=== PATIENT | female | born 1970 | race African-American/Black ===

== ENCOUNTER 2017-01-26 14:47 | Emergency (ER) | payer SELFPAY ==
--- NOTE | 2017-01-26 15:29 | ER Document Report ---
ED Headache - General Stated Complaint: HEADACHES Time Seen by Provider: 01/26/17 15:19 Mode of Arrival: Ambulatory Information source: Patient Notes: 46 yo smoker, non htn, non dm, non hyperlipedemic obese female woke up with headache frontal CHA 4/5, not feeling well-not herself- 400mg Ibuprofen at 11 am did not help at all. getting ready for work at [employer] in shower felt light headed briefly, and had unusual feeling left temporal throbbing 2/5. Burning midline retrosternal with right chest discomfort yesterday 5:30 pm lasting 5- 6 hours (never had chest pain work up- tums has worked in the past) Thought it was gas. Went to work for mtg at 1 pm today, CHA did not decrease at all, but states it is 2/5. PMH: no dm or HTN, left partial colectomy for polyps, BTL, cholecystectomy, no CAD. FMH: HTN, no CAD. No PCP. cx TRAVEL OUTSIDE OF THE [place] IN LAST 30 DAYS: No - Related Data Allergies/Adverse Reactions: amoxicillin [Amoxicillin] Allergy (Verified 01/26/17 15:30) latex [Latex] Allergy (Verified 01/26/17 15:30) Home Medications: Current Home Medications No Home Medications 01/26/17 [History] Past Medical History - General Information source: Patient - Social History Smoking Status: Current Every Day Smoker Frequency of alcohol use: None Drug Abuse: None Lives with: Family Family History: Reviewed & Not Pertinent Pulmonary Medical History: Reports: Hx Asthma Past Surgical History: Reports: Hx Appendectomy, Hx Cholecystectomy, Hx Tubal Ligation - Immunizations Hx Diphtheria, Pertussis, Tetanus Vaccination: Yes Review of Systems - Review of Systems Constitutional: No symptoms reported EENT: No symptoms reported Cardiovascular: See HPI Respiratory: No symptoms reported Gastrointestinal: No symptoms reported Genitourinary: No symptoms reported Female Genitourinary: No symptoms reported Musculoskeletal: No symptoms reported Skin: No symptoms reported Hematologic/Lymphatic: No symptoms reported Neurological/Psychological: See HPI Physical Exam - Vital signs Vitals: Temp Pulse Resp BP Pulse Ox 97.8 F 87 18 149/76 H 100 01/26/17 15:05 01/26/17 15:05 01/26/17 15:05 01/26/17 15:05 01/26/17 15:05 Interpretation: Normal - General General appearance: Appears well, Alert - HEENT Head: Normocephalic, Atraumatic Eyes: Normal Conjunctiva: Normal Pupils: PERRL Mucous membranes: Normal Pharynx: Normal Neck: Supple. No: Lymphadenopathy - Respiratory Respiratory status: No respiratory distress Chest status: Nontender Breath sounds: Normal Chest palpation: Normal - Cardiovascular Rhythm: Regular Heart sounds: Normal auscultation Murmur: No - Abdominal Inspection: Normal Distension: No distension Bowel sounds: Normal Tenderness: Nontender Organomegaly: No organomegaly - Back Back: Normal, Nontender. No: CVA tenderness - Extremities General upper extremity: Normal inspection, Nontender, Normal color, Normal ROM , Normal temperature General lower extremity: Normal inspection, Nontender, Normal color, Normal ROM , Normal temperature, Normal weight bearing. No: Marsha's sign - Neurological Neuro grossly intact: Yes Cognition: Normal Orientation: AAOx4 [place] Coma Scale Eye Opening: Spontaneous Claudia Coma Scale Verbal: Oriented [place] Coma Scale Motor: Obeys Commands [place] Coma Scale Total: 15 Speech: Normal Motor strength normal: LUE, RUE, LLE, RLE Sensory: Normal - Psychological Associated symptoms: Normal affect, Normal mood - Skin Skin Temperature: Warm Skin Moisture: Dry Skin Color: Normal Course - Re-evaluation Re-evalutation: 01/26/17 17:41 CT scan, chest x-ray are negative, lab work is negative, troponin is negative, EKG normal sinus rhythm with a rate of 83, no ectopy or acute changes. - Vital Signs Vital signs: Temp Pulse Resp BP Pulse Ox 98.3 F 92 18 164/76 H 99 01/26/17 17:59 01/26/17 17:59 01/26/17 17:59 01/26/17 17:59 01/26/17 17:59 - Laboratory Result Diagrams: 01/26/17 15:30 01/26/17 15:30 Laboratory results interpreted by me: 01/26/17 15:30 RDW 14.2 H Discharge - Discharge Clinical Impression: episode of chest pain last night, episode of lightheadedness Headache Qualifiers: Headache type: unspecified Headache chronicity pattern: unspecified pattern Intractability: not intractable Qualified Code(s): R51 - Headache Condition: Good Disposition: HOME, SELF-CARE Instructions: Acetaminophen, Chest Pain of Unclear Cause ([facility]), Dizziness ([facility]) , Family Physicians / Practices, Headache ([facility]), Use of [id number] Ibuprofen ([facility]) Additional Instructions: see neurologist about the headache return to the ER if worsening of the headache or chest pain recurrence Please complete the patient satisfaction survey if you get one, and return it.. If you do not receive a survey, then you can go to the [facility] website, [email or web address] and place your comments about your very good care. Thank you very much. It was a pleasure being your medical provider today. Forms: Return to Work Referrals: KATHYA MOREIRA MD [ACTIVE STAFF] - Follow up in 3-5 days
--- NOTE | 2017-01-26 16:02 | RADIOLOGY REPORT (SQ) ---
EXAM DESCRIPTION: CT HEAD WITHOUT COMPLETED DATE/TIME: 01/26/2017 3:56 pm REASON FOR STUDY: headache and dizzy COMPARISON: None. TECHNIQUE: Axial images acquired through the brain without intravenous contrast. Images reviewed wi th bone, brain and subdural windows. Images stored on PACS. All CT scanners at this facility use dose modulation, iterative reconstruction, and/or weight based d osing when appropriate to reduce radiation dose to as low as reasonably achievable (ALARA). [facility]: Dose Right [facility]: CareDose [facility]: Dose Right [facility]: Teradose 4D [facility]: [employer] RADIATION DOSE: mGy. LIMITATIONS: None. FINDINGS: VENTRICLES: Normal size and contour. CEREBRUM: No masses. No hemorrhage. No midline shift. No evidence for acute infarction. Normal gra y/white matter differentiation. No areas of low density in the white matter. CEREBELLUM: No masses. No hemorrhage. No alteration of density. No evidence for acute infarction. EXTRAAXIAL SPACES: No fluid collections. No masses. ORBITS AND GLOBE: No intra- or extraconal masses. Normal contour of globe without masses. CALVARIUM: No fracture. PARANASAL SINUSES: No fluid or mucosal thickening. SOFT TISSUES: No mass or hematoma. OTHER: No other significant finding. IMPRESSION: NORMAL BRAIN CT WITHOUT CONTRAST. EVIDENCE OF ACUTE STROKE: NO. COMMENT: Quality ID # [id number]: Final reports with documentation of one or more dose reduction techniques (e.g., Automated exposure control, adjustment of the mA and/or kV according to patient size, use of iterative reconstruction technique) TECHNICAL DOCUMENTATION: JOB ID: [id number] [employer]- All Rights Reserved
[2017-01-26 16:07] LABS: ABSOLUTE EOSINOPHILS # (AUTO) 0.1 10^3/uL (0.0-0.6); ABSOLUTE LYMPHOCYTES (AUTO) 2.9 10^3/uL (0.5-4.7); ABSOLUTE MONOCYTES (AUTO) 0.5 10^3/uL (0.1-1.4); ABSOLUTE NEUT (AUTO) 3.5 10^3/uL (1.7-8.2); BASOPHILS % (AUTO) 0.4 % (0-2); EOSINOPHILS % (AUTO) 1.6 % (0-6); HEMATOCRIT 36.4 % (36.0-47.0); HEMOGLOBIN 12.3 g/dL (12.0-15.5); HGB HCT DIFFERENCE 0.5; LYMPHOCYTES % (AUTO) 41.4 % (13-45); MEAN CORPUSCULAR HEMOGLOBIN 27.2 pg (27.0-33.4); MEAN CORPUSCULAR HGB CONC 33.7 g/dL (32.0-36.0); MEAN CORPUSCULAR VOLUME 81 fl (80-97); MONOCYTES % (AUTO) 6.9 % (3-13); RED BLOOD COUNT 4.51 10^6/uL (3.72-5.28); RED CELL DISTRIBUTION WIDTH 14.2 % (11.5-14.0); SEGMENTED NEUTROPHILS % (AUTO) 49.7 % (42-78); WHITE BLOOD COUNT 7.1 10^3/uL (4.0-10.5)
--- NOTE | 2017-01-26 16:10 | RADIOLOGY REPORT (SQ) ---
EXAM DESCRIPTION: CHEST PA/LAT COMPLETED DATE/TIME: 01/26/2017 4:01 pm REASON FOR STUDY: chest pain yesterday COMPARISON: None. EXAM PARAMETERS: NUMBER OF VIEWS: two views TECHNIQUE: Digital Frontal and Lateral radiographic views of the chest acquired. RADIATION DOSE: NA LIMITATIONS: none FINDINGS: LUNGS AND PLEURA: No opacities, masses or pneumothorax. No pleural effusion. MEDIASTINUM AND HILAR STRUCTURES: No masses or contour abnormalities. HEART AND VASCULAR STRUCTURES: Heart normal size. No evidence for failure. BONES: No acute findings. HARDWARE: Clips in the upper abdomen. OTHER: No other significant finding. IMPRESSION: NO SIGNIFICANT RADIOGRAPHIC FINDING IN THE CHEST. TECHNICAL DOCUMENTATION: JOB ID: [id number] [employer]- All Rights Reserved
[2017-01-26 16:31] LABS: ALANINE AMINOTRANSFERASE 29 U/L (9-52); ALBUMIN 4.1 g/dL (3.5-5.0); ALKALINE PHOSPHATASE 95 U/L (38-126); ANION GAP 10 (5-19); ASPARTATE AMINO TRANSFERASE 20 U/L (14-36); BILIRUBIN,DIRECT 0.3 mg/dL (0.0-0.4); BILIRUBIN,TOTAL 0.4 mg/dL (0.2-1.3); BLOOD UREA NITROGEN 13 mg/dL (7-20); CALCIUM 9.8 mg/dL (8.4-10.2); CARBON DIOXIDE 30 mmol/L (22-30); CHLORIDE 104 mmol/L (98-107); CREATINE KINASE 64 U/L (30-135); CREATININE RESULT 0.68 mg/dL (0.52-1.25); GLUCOSE 88 mg/dL (75-110); POTASSIUM 4.1 mmol/L (3.6-5.0); TOTAL PROTEIN 7.9 g/dL (6.3-8.2)
[2017-01-26 16:43] LABS: CREATINE KINASE MB 0.27 ng/mL (<4.55)
[2017-01-26 16:45] LABS: TROPONIN I < 0.012 ng/mL
[2017-01-26 18:00] VITALS: BP 164/76
--- NOTE | 2017-01-27 13:38 | EKG REPORT ---
SEVERITY:- NORMAL ECG - SINUS RHYTHM : Confirmed by: Jl Nagy 27-Jan-2017 13:37:26
== END 2017-01-26 18:07 | disposition home or self-care (01) ==
LOC: ER 14:47
DX: R51 Headache (principal); R07.9 Chest pain, unspecified; R42 Dizziness and giddiness; E66.9 Obesity, unspecified; J45.909 Unspecified asthma, uncomplicated; F17.200 Nicotine dependence, unspecified, uncomplicated; Z68.43 Body mass index [BMI] 50.0-59.9, adult; Z88.0 Allergy status to penicillin; Z91.040 Latex allergy status
CPT/HCPCS: 36415; 70450; 71020; 80053; 82550; 82553; 84484; 85025; 93005; 93010; 99285

== ENCOUNTER 2017-08-18 08:08 | Emergency (ER) | payer SELFPAY ==
--- NOTE | 2017-08-18 08:48 | ER Document Report ---
ED GI/ - General Chief Complaint: Abdominal Pain Stated Complaint: ABDOMINAL PAIN,BLOOD IN STOOL Time Seen by Provider: 08/18/17 08:30 Mode of Arrival: Ambulatory Information source: Patient Notes: Patient presents complaining of rectal bleeding with bowel movements on Sunday, Sunday and Sunday of this week. Patient denies any rectal bleeding today. Patient states that it was convenient with her scheduled to come in today for evaluation. Patient states she has a history of polyps surgery 8 years ago. Patient denies any fever, nausea or vomiting. Patient does report some urinary frequency. Patient denies any vaginal discharge. Patient additionally complains of occasional episodes of dizziness. Patient denies any sinus congestion but does report pruritus to her ears and popping sensation in her ears. TRAVEL OUTSIDE OF THE [place] IN LAST 30 DAYS: No - HPI Patient complains to provider of: Abdominal pain, Other - Rectal bleeding with bowel movement. No: Vomiting Onset: Other - 5 days ago Timing/Duration: Gone Quality of pain: Achy Pain Level: 2 Location: Pelvis Vaginal bleeding (Compared to normal period): None Associated symptoms: Blood in stool, Dizzy. denies: Diarrhea, Dysuria, Fever, Nausea, Urinary hesitancy, Urinary frequency, Urinary retention, Urinary urgency , Vomiting Exacerbated by: Denies Relieved by: Denies Similar symptoms previously: Yes Recently seen / treated by doctor: No - Related Data Allergies/Adverse Reactions: amoxicillin [Amoxicillin] Allergy (Verified 08/18/17 08:08) latex [Latex] Allergy (Verified 08/18/17 08:08) Past Medical History - General Information source: Patient - Social History Smoking Status: Current Every Day Smoker Smoking Education Provided: Yes Frequency of alcohol use: None Drug Abuse: None Occupation: Food[employer] Family History: Reviewed & Not Pertinent - Past Medical History Cardiac Medical History: Denies: Hx Coronary Artery Disease, Hx Heart Attack, Hx Hypertension Pulmonary Medical History: Reports: Hx Asthma Denies: Hx Bronchitis, Hx COPD, Hx Pneumonia EENT Medical History: Reports: Other - Allergies Neurological Medical History: Denies: Hx Cerebrovascular Accident, Hx Seizures Musculoskeltal Medical History: Denies Hx Arthritis Past Surgical History: Reports: Hx Abdominal Surgery - part of colon removed, Hx Appendectomy, Hx Cholecystectomy, Hx Tubal Ligation - Immunizations Hx Diphtheria, Pertussis, Tetanus Vaccination: Yes Review of Systems - Review of Systems Constitutional: No symptoms reported. denies: Fever, Recent illness EENT: Other - Ear pruritus. denies: Nose pain, Throat pain Cardiovascular: Dizziness. denies: Chest pain Respiratory: No symptoms reported. denies: Cough, Short of breath Gastrointestinal: Abdominal pain, Rectal bleeding. denies: Diarrhea, Nausea, Vomiting Genitourinary: No symptoms reported. denies: Dysuria Female Genitourinary: No symptoms reported. denies: Vaginal discharge, Vaginal bleeding Musculoskeletal: No symptoms reported. denies: Back pain Skin: No symptoms reported Hematologic/Lymphatic: No symptoms reported Neurological/Psychological: No symptoms reported Physical Exam - Vital signs Vitals: Temp Pulse Resp BP Pulse Ox 98.5 F 88 16 126/60 H 98 08/18/17 08:20 08/18/17 08:20 08/18/17 08:20 08/18/17 08:20 08/18/17 08:20 - General General appearance: Appears well, Alert In distress: None - HEENT Head: Normocephalic Eyes: Normal Ears: Normal External canal: Normal Tympanic membrane: Serous effusion Nasal: Normal Mouth/Lips: Normal Pharynx: Normal Neck: Normal, Supple. No: Lymphadenopathy - Respiratory Respiratory status: No respiratory distress Chest status: Nontender Breath sounds: Normal. No: Rales, Rhonchi, Stridor, Wheezing Chest palpation: Normal - Cardiovascular Rhythm: Regular Heart sounds: S1 appreciated, S2 appreciated Murmur: No - Abdominal Inspection: Morbidly Obese, Other - linear scar Distension: No distension Bowel sounds: Normal Tenderness: Tender - suprapubic - Back Back: Normal, Nontender. No: CVA tenderness - Extremities General upper extremity: Normal inspection, Normal ROM General lower extremity: Normal inspection, Normal ROM - Neurological Neuro grossly intact: Yes Cognition: Normal [place] Coma Scale Eye Opening: Spontaneous Claudia Coma Scale Verbal: Oriented Claudia Coma Scale Motor: Obeys Commands Claudia Coma Scale Total: 15 - Psychological Associated symptoms: Normal affect, Normal mood - Skin Skin Temperature: Warm Skin Moisture: Dry Skin Color: Normal Course - Re-evaluation Re-evalutation: 08/18/17 12:21 Patient's Hemoccult test negative. No concern for anemia. Patient hemodynamically stable. Patient states she has had chronic abdominal pain since having her initial surgery. Patient does have large stool load noted on abdominal x-ray, no concern for obstruction. Will give patient outpatient information for follow-up with GI doctor for further evaluation of her episode of rectal bleeding. Consulted with Dr. Ross who is in agreement with this discharge plan of care. 08/18/17 18:15 - Vital Signs Vital signs: Temp Pulse Resp BP Pulse Ox 98.7 F 87 18 134/73 H 100 08/18/17 12:35 08/18/17 12:35 08/18/17 12:35 08/18/17 12:35 08/18/17 12:35 - Laboratory Result Diagrams: 08/18/17 09:20 08/18/17 10:30 Laboratory results interpreted by me: 08/18/17 08/18/17 09:20 10:30 APTT 38.9 H Creatinine 0.49 L Labs- Entire Visit 08/18/17 08/18/17 08/18/17 08:50 09:20 09:20 WBC 7.3 RBC 4.61 Hgb 12.6 Hct 38.0 MCV 82 MCH 27.4 MCHC 33.2 RDW 13.7 Plt Count 258 Seg Neutrophils % 54.7 Lymphocytes % 37.5 Monocytes % 6.1 Eosinophils % 0.8 Basophils % 0.9 Absolute Neutrophils 4.0 Absolute Lymphocytes 2.7 Absolute Monocytes 0.4 Absolute Eosinophils 0.1 Absolute Basophils 0.1 PT 13.5 INR 0.98 APTT 38.9 H Sodium Potassium Chloride Carbon Dioxide Anion Gap BUN Creatinine Est GFR ( Amer) Est GFR (Non-Af Amer) Glucose Calcium Total Bilirubin Direct Bilirubin Neonat Total Bilirubin Neonat Direct Bilirubin Neonat Indirect Bili AST ALT Alkaline Phosphatase Total Protein Albumin Lipase Serum HCG, Qual Urine Color Urine Appearance Urine pH Ur Specific [place] Urine Protein Urine Glucose (UA) Urine Ketones Urine Blood Urine Nitrite Urine Bilirubin Urine Urobilinogen Ur Leukocyte Esterase Urine WBC (Auto) Urine RBC (Auto) Urine Bacteria (Auto) Squamous Epi Cells Auto Urine Mucus (Auto) Urine Ascorbic Acid Urine HCG, Qual Stool Occult Blood NEGATIVE 08/18/17 08/18/17 08/18/17 09:20 09:20 09:30 WBC RBC Hgb Hct MCV MCH MCHC RDW Plt Count Seg Neutrophils % Lymphocytes % Monocytes % Eosinophils % Basophils % Absolute Neutrophils Absolute Lymphocytes Absolute Monocytes Absolute Eosinophils Absolute Basophils PT INR APTT Sodium Cancelled Potassium Cancelled Chloride Cancelled Carbon Dioxide Cancelled Anion Gap Cancelled BUN Cancelled Creatinine Cancelled Est GFR ( Amer) Cancelled Est GFR (Non-Af Amer) Cancelled Glucose Cancelled Calcium Cancelled Total Bilirubin Cancelled Direct Bilirubin Cancelled Neonat Total Bilirubin Cancelled Neonat Direct Bilirubin Cancelled Neonat Indirect Bili Cancelled AST Cancelled ALT Cancelled Alkaline Phosphatase Cancelled Total Protein Cancelled Albumin Cancelled Lipase Cancelled Serum HCG, Qual Cancelled Urine Color YELLOW Urine Appearance CLEAR Urine pH 7.0 Ur Specific [place] 1.010 Urine Protein NEGATIVE Urine Glucose (UA) NEGATIVE Urine Ketones NEGATIVE Urine Blood NEGATIVE Urine Nitrite NEGATIVE Urine Bilirubin NEGATIVE Urine Urobilinogen NEGATIVE Ur Leukocyte Esterase NEGATIVE Urine WBC (Auto) 2 Urine RBC (Auto) 0 Urine Bacteria (Auto) TRACE Squamous Epi Cells Auto 3 Urine Mucus (Auto) RARE Urine Ascorbic Acid NEGATIVE Urine HCG, Qual Stool Occult Blood 08/18/17 08/18/17 09:30 10:30 WBC RBC Hgb Hct MCV MCH MCHC RDW Plt Count Seg Neutrophils % Lymphocytes % Monocytes % Eosinophils % Basophils % Absolute Neutrophils Absolute Lymphocytes Absolute Monocytes Absolute Eosinophils Absolute Basophils PT INR APTT Sodium 143.6 Potassium 4.5 Chloride 107 Carbon Dioxide 25 Anion Gap 12 BUN 9 Creatinine 0.49 L Est GFR ( Amer) > 60 Est GFR (Non-Af Amer) > 60 Glucose 91 Calcium 9.4 Total Bilirubin 0.5 Direct Bilirubin 0.3 Neonat Total Bilirubin Not Reportable Neonat Direct Bilirubin Not Reportable Neonat Indirect Bili Not Reportable AST 17 ALT 24 Alkaline Phosphatase 88 Total Protein 7.4 Albumin 3.8 Lipase 55.0 Serum HCG, Qual Urine Color Urine Appearance Urine pH Ur Specific [place] Urine Protein Urine Glucose (UA) Urine Ketones Urine Blood Urine Nitrite Urine Bilirubin Urine Urobilinogen Ur Leukocyte Esterase Urine WBC (Auto) Urine RBC (Auto) Urine Bacteria (Auto) Squamous Epi Cells Auto Urine Mucus (Auto) Urine Ascorbic Acid Urine HCG, Qual NEGATIVE Stool Occult Blood - Diagnostic Test Radiology reviewed: Image reviewed, Reports reviewed Discharge - Discharge Clinical Impression: episode of rectal bleeding Condition: Stable Disposition: HOME, SELF-CARE Instructions: Abdominal Pain ([facility]), Rectal Bleeding, Unclear Cause ([facility]) Additional Instructions: Return immediately for any new or worsening symptoms Followup with your primary care provider, call tomorrow to make a followup appointment Follow-up with a topstitcher lockstitch, they can get you set up for a colonoscopy for further evaluation Prescriptions: Cetirizine HCl [Zyrtec 10 mg Tablet] 1 tab PO DAILY PRN #30 tablet PRN Reason: Polyethylene Glycol 3350 [Miralax] 17 gm PO DAILY #119 powder Forms: Smoking Cessation Education, Return to Work Referrals: [facility] [Provider Group] - Follow up as needed [facility] [Provider Group] - Follow up as needed MEREDITH DAVIS MD [NO LOCAL MD] - Follow up as needed MARIA LUISA ELLISON MD [ACTIVE STAFF] - Follow up as needed JESUSITA BLAIR MD [ACTIVE STAFF] - Follow up as needed
[2017-08-18 09:32] LABS: ABSOLUTE BASOPHILS # (AUTO) 0.1 10^3/uL (0.0-0.2); ABSOLUTE EOSINOPHILS # (AUTO) 0.1 10^3/uL (0.0-0.6); ABSOLUTE LYMPHOCYTES (AUTO) 2.7 10^3/uL (0.5-4.7); ABSOLUTE MONOCYTES (AUTO) 0.4 10^3/uL (0.1-1.4); BASOPHILS % (AUTO) 0.9 % (0-2); EOSINOPHILS % (AUTO) 0.8 % (0-6); HEMOGLOBIN 12.6 g/dL (12.0-15.5); LYMPHOCYTES % (AUTO) 37.5 % (13-45); MEAN CORPUSCULAR HEMOGLOBIN 27.4 pg (27.0-33.4); MEAN CORPUSCULAR HGB CONC 33.2 g/dL (32.0-36.0); MEAN CORPUSCULAR VOLUME 82 fl (80-97); MONOCYTES % (AUTO) 6.1 % (3-13); PLATELET COUNT 258 10^3/uL (150-450); RED BLOOD COUNT 4.61 10^6/uL (3.72-5.28); RED CELL DISTRIBUTION WIDTH 13.7 % (11.5-14.0); SEGMENTED NEUTROPHILS % (AUTO) 54.7 % (42-78); TOTAL CELLS COUNTED % (AUTO) 100 %; WHITE BLOOD COUNT 7.3 10^3/uL (4.0-10.5)
[2017-08-18 09:49] LABS: INTERNATIONAL RATION (INR) 0.98; PARTIAL THROMBOPLASTIN TIME 38.9 SEC (23.5-35.8); PROTHROMBIN TIME 13.5 SEC (11.4-15.4)
[2017-08-18 10:04] LABS: APPEARANCE,URINE CLEAR; BILIRUBIN,URINE NEGATIVE (NEGATIVE); COLOR,URINE YELLOW; GLUCOSE, URINE NEGATIVE (NEGATIVE); KETONES,URINE NEGATIVE (NEGATIVE); LEUKOCYTE ESTERASE,URINE NEGATIVE (NEGATIVE); NITRITE,URINE NEGATIVE (NEGATIVE); PROTEIN,URINE NEGATIVE (NEGATIVE); UROBILINOGEN,URINE NEGATIVE mg/dL (<2.0)
[2017-08-18 11:09] LABS: ALANINE AMINOTRANSFERASE 24 U/L (9-52); ALBUMIN 3.8 g/dL (3.5-5.0); ALKALINE PHOSPHATASE 88 U/L (38-126); ANION GAP 12 (5-19); ASPARTATE AMINO TRANSFERASE 17 U/L (14-36); BILIRUBIN,DIRECT 0.3 mg/dL (0.0-0.4); BILIRUBIN,TOTAL 0.5 mg/dL (0.2-1.3); BLOOD UREA NITROGEN 9 mg/dL (7-20); CALCIUM 9.4 mg/dL (8.4-10.2); CARBON DIOXIDE 25 mmol/L (22-30); CHLORIDE 107 mmol/L (98-107); GLUCOSE 91 mg/dL (75-110); POTASSIUM 4.5 mmol/L (3.6-5.0); SODIUM 143.6 mmol/L (137-145); TOTAL PROTEIN 7.4 g/dL (6.3-8.2)
--- NOTE | 2017-08-18 11:57 | RADIOLOGY REPORT (SQ) ---
EXAM DESCRIPTION: ACUTE ABDOMEN SERIES COMPLETED DATE/TIME: 08/18/2017 11:48 am REASON FOR STUDY: abd pain COMPARISON: None. NUMBER OF VIEWS: Three views. TECHNIQUE: Frontal chest, supine abdomen and upright/decubitus abdomen radiographic images acquired. LIMITATIONS: None. FINDINGS: CHEST: Lungs clear of infiltrates. FREE AIR: None. No abnormal gas collections. BOWEL GAS PATTERN: Nonobstructive pattern. No dilated loops or air fluid levels. CALCIFICATIONS: No suspicious calcifications. HARDWARE: Surgical clips. SOFT TISSUES: No gross mass or suggestion of organomegaly. BONES: No acute fracture. No worrisome bone lesions. OTHER: No other significant finding. IMPRESSION: NO RADIOGRAPHIC EVIDENCE FOR ACUTE ABDOMINAL DISEASE. TECHNICAL DOCUMENTATION: JOB ID: [id number] [employer]- All Rights Reserved Reading location - IP/workstation name: [email or web address]
[2017-08-18 12:38] VITALS: BP 134/73
--- NOTE | 2017-08-18 20:45 | EKG REPORT ---
SEVERITY:- NORMAL ECG - SINUS RHYTHM : Confirmed by: Jl Nagy 18-Aug-2017 17:44:23
== END 2017-08-18 12:41 | disposition home or self-care (01) ==
LOC: ER 08:08
DX: K62.5 Hemorrhage of anus and rectum (principal); R35.0 Frequency of micturition; R42 Dizziness and giddiness; L29.9 Pruritus, unspecified; R10.2 Pelvic and perineal pain; F17.200 Nicotine dependence, unspecified, uncomplicated; J45.909 Unspecified asthma, uncomplicated; Z90.49 Acquired absence of other specified parts of digestive tract; Z98.51 Tubal ligation status; Z88.0 Allergy status to penicillin
CPT/HCPCS: 36415; 74022; 80053; 81001; 81025; 82272; 83690; 85025; 85610; 85730; 93005; 93010; 99284

== ENCOUNTER 2018-10-05 09:25 | Emergency (ER) | payer SELFPAY ==
[2018-10-05] MEDS ORDERED: ONDANSETRON 4 MG TAB.RAPDIS PO ONE (09:35)
--- NOTE | 2018-10-05 09:39 | ER Document Report ---
ED Medical Screen (RME) - General Chief Complaint: Dizziness Stated Complaint: LIGHTHEADED Time Seen by Provider: 10/05/18 09:29 Mode of Arrival: Ambulatory Information source: Patient Notes: Patient presents emergency department with feeling lightheaded blurred vision reports she just did not feel well. Reports for the past few days she has not been feeling well. Complains of right upper quad abdominal pain. Reports history of constipation problems. Last couple days she has been taking mag citrate and MiraLAX. She reports she has a bowel movement yesterday but laid in the bed all day because she did not feel good. Complains of nausea denies chest pain. Denies dysuria denies vaginal discharge. Denies vomiting and diarrhea fever. Reports history of colon resection due to polyps and family history of colon cancer. Denies history of kidney stones. Patient looks comfortable, nontoxic looking, RUQ ttp. I have greeted and performed a rapid initial assessment of this patient. A comprehensive ED assessment and evaluation of the patient, analysis of test results and completion of the medical decision making process will be conducted by additional ED providers. Dictation of this chart was performed using voice recognition software; therefore, there may be some unintended grammatical errors. TRAVEL OUTSIDE OF THE [place] IN LAST 30 DAYS: No - HPI Onset: Other - Related Data Allergies/Adverse Reactions: amoxicillin [Amoxicillin] Allergy (Verified 10/05/18 09:26) latex [Latex] Allergy (Verified 10/05/18 09:26) Past Medical History - Social History Chew tobacco use (# tins/day): No Frequency of alcohol use: None Drug Abuse: None - Past Medical History Cardiac Medical History: Denies: Hx Coronary Artery Disease, Hx Heart Attack, Hx Hypertension Pulmonary Medical History: Reports: Hx Asthma Denies: Hx Bronchitis, Hx COPD, Hx Pneumonia Neurological Medical History: Denies: Hx Cerebrovascular Accident, Hx Seizures Renal/ Medical History: Denies: Hx Peritoneal Dialysis Musculoskeltal Medical History: Denies Hx Arthritis Past Surgical History: Reports: Hx Abdominal Surgery - part of colon removed, Hx Appendectomy, Hx Breast Surgery - breast reduction, Hx Cholecystectomy, Hx Tubal Ligation - Immunizations Hx Diphtheria, Pertussis, Tetanus Vaccination: Yes Physical Exam - Vital signs Vitals: Temp Pulse Resp BP Pulse Ox 98.6 F 84 16 153/71 H 98 10/05/18 09:29 10/05/18 09:29 10/05/18 09:29 10/05/18 09:29 10/05/18 09:29 Course - Vital Signs Vital signs: Temp Pulse Resp BP Pulse Ox 98.6 F 84 16 153/71 H 98 10/05/18 09:29 10/05/18 09:29 10/05/18 09:29 10/05/18 09:29 10/05/18 09:29 - Laboratory Result Diagrams: 10/05/18 09:44 10/05/18 09:44
[2018-10-05 09:58] LABS: ABSOLUTE BASOPHILS # (AUTO) 0.1 10^3/uL (0.0-0.2); ABSOLUTE EOSINOPHILS # (AUTO) 0.1 10^3/uL (0.0-0.6); ABSOLUTE LYMPHOCYTES (AUTO) 2.6 10^3/uL (0.5-4.7); ABSOLUTE MONOCYTES (AUTO) 0.5 10^3/uL (0.1-1.4); BASOPHILS % (AUTO) 1.1 % (0-2); EOSINOPHILS % (AUTO) 1.6 % (0-6); HEMATOCRIT 39.8 % (36.0-47.0); HEMOGLOBIN 13.6 g/dL (12.0-15.5); LYMPHOCYTES % (AUTO) 35.7 % (13-45); MEAN CORPUSCULAR HEMOGLOBIN 28.2 pg (27.0-33.4); MEAN CORPUSCULAR HGB CONC 34.2 g/dL (32.0-36.0); MEAN CORPUSCULAR VOLUME 83 fl (80-97); MONOCYTES % (AUTO) 7.1 % (3-13); PLATELET COUNT 261 10^3/uL (150-450); RED BLOOD COUNT 4.82 10^6/uL (3.72-5.28); RED CELL DISTRIBUTION WIDTH 13.9 % (11.5-14.0); SEGMENTED NEUTROPHILS % (AUTO) 54.5 % (42-78); TOTAL CELLS COUNTED % (AUTO) 100 %; WHITE BLOOD COUNT 7.4 10^3/uL (4.0-10.5)
[2018-10-05 10:09] LABS: APPEARANCE,URINE CLEAR; BILIRUBIN,URINE NEGATIVE (NEGATIVE); COLOR,URINE STRAW; GLUCOSE, URINE NEGATIVE (NEGATIVE); KETONES,URINE NEGATIVE (NEGATIVE)
[2018-10-05 10:10] LABS: LEUKOCYTE ESTERASE,URINE NEGATIVE (NEGATIVE); NITRITE,URINE NEGATIVE (NEGATIVE); PROTEIN,URINE NEGATIVE (NEGATIVE); UROBILINOGEN,URINE NEGATIVE mg/dL (<2.0)
[2018-10-05 10:16] LABS: ALANINE AMINOTRANSFERASE 19 U/L (9-52); ALBUMIN 4.1 g/dL (3.5-5.0); ALKALINE PHOSPHATASE 90 U/L (38-126); ANION GAP 6 (5-19); ASPARTATE AMINO TRANSFERASE 20 U/L (14-36); BILIRUBIN,DIRECT 0.2 mg/dL (0.0-0.4); BILIRUBIN,TOTAL 0.3 mg/dL (0.2-1.3); BLOOD UREA NITROGEN 12 mg/dL (7-20); CALCIUM 9.4 mg/dL (8.4-10.2); CARBON DIOXIDE 28 mmol/L (22-30); CHLORIDE 106 mmol/L (98-107); GLUCOSE 104 mg/dL (75-110); LIPASE 75.4 U/L (23-300); POTASSIUM 4.3 mmol/L (3.6-5.0); SODIUM 139.9 mmol/L (137-145); TOTAL PROTEIN 8.1 g/dL (6.3-8.2)
--- NOTE | 2018-10-05 11:04 | RADIOLOGY REPORT (SQ) ---
EXAM DESCRIPTION: U/S ABDOMEN LIMITED W/O DOP COMPLETED DATE/TIME: 10/05/2018 10:26 am REASON FOR STUDY: RUQ pain, ?unsure if she had vernon COMPARISON: Abdominal films 08/18/2017 CT abdomen pelvis 10/05/2018 TECHNIQUE: Dynamic and static grayscale images acquired of the abdomen and recorded on PACS. Additio nal selected color Doppler and spectral images recorded. LIMITATIONS: Large patient, body habitus, midline bowel gas FINDINGS: PANCREAS: Midline pancreas unremarkable LIVER: No masses. Echotexture normal. LIVER VASCULATURE: Normal directional flow of the main portal vein and hepatic veins. GALLBLADDER: Surgically absent ULTRASOUND-DETECTED REID'S SIGN: Not applicable INTRAHEPATIC DUCTS AND COMMON DUCT: CBD and intrahepatic ducts normal caliber. No filling defects. INFERIOR VENA CAVA: Normal flow. AORTA: No aneurysm. RIGHT KIDNEY: Normal size. Normal echogenicity. No solid or suspicious masses. No hydronephrosis. No calcifications. PERITONEAL AND RIGHT PLEURAL SPACE: No ascites or effusions. OTHER: No other significant findings. IMPRESSION: Post cholecystectomy. TECHNICAL DOCUMENTATION: JOB ID: [id number]- All Rights Reserved Reading location - IP/workstation name: [email or web address]
--- NOTE | 2018-10-05 11:20 | RADIOLOGY REPORT (SQ) ---
EXAM DESCRIPTION: CT ABD/PELVIS NO ORAL OR IV COMPLETED DATE/TIME: 10/05/2018 11:03 am REASON FOR STUDY: RUQ pain, s/p hemicolectomy COMPARISON: Right upper quadrant ultrasound 10/05/2018 TECHNIQUE: CT scan of the abdomen and pelvis performed without intravenous or oral contrast. Images reviewed with lung, soft tissue, and bone windows. Reconstructed coronal and sagittal MPR images revi ewed. All images stored on PACS. All CT scanners at this facility use dose modulation, iterative reconstruction, and/or weight based d osing when appropriate to reduce radiation dose to as low as reasonably achievable (ALARA). [facility]: Dose Right [facility]: CareDose [facility]: Dose Right [facility]: Teradose 4D [facility]: Smart Bark[employer] RADIATION DOSE: CT Rad equipment meets quality standard of care and radiation dose reduction techniq ues were employed. CTDIvol: 18.7 mGy. DLP: 954 mGy-cm.mGy. LIMITATIONS: None. FINDINGS: LOWER CHEST: No significant findings. No nodules or infiltrates. NON-CONTRASTED LIVER, SPLEEN, ADRENALS: Evaluation limited by lack of IV contrast. No identified sign ificant masses. PANCREAS: No masses. No peripancreatic inflammatory changes. GALLBLADDER: Surgically absent RIGHT KIDNEY AND URETER: No suspicious masses. Assessment limited by lack of IV contrast. No signif icant calcifications. No hydronephrosis or hydroureter. LEFT KIDNEY AND URETER: No suspicious masses. Assessment limited by lack of IV contrast. No signifi cant calcifications. No hydronephrosis or hydroureter. AORTA AND RETROPERITONEUM: No aneurysm. No retroperitoneal masses or adenopathy. BOWEL AND PERITONEAL CAVITY: Post sigmoid colon partial resection with anastomotic isac. There ar e multiple surgical clips in the left upper quadrant. No CT evidence of bowel obstruction or free intraperitoneal air or fluid. APPENDIX: Normal. PELVIS, BLADDER, AND ABDOMINAL WALL:No abnormal masses. No free fluid. Bladder normal. Normal size f emale pelvic organs. BONES: No significant findings. OTHER: No other significant finding. IMPRESSION: No acute findings. COMMENT: Quality ID # [id number]: Final reports with documentation of one or more dose reduction techniques (e.g., Automated exposure control, adjustment of the mA and/or kV according to patient size, use of iterative reconstruction technique) TECHNICAL DOCUMENTATION: JOB ID: [id number]- All Rights Reserved Reading location - IP/workstation name: [email or web address]
--- NOTE | 2018-10-05 12:18 | ER Document Report ---
ED General - General Chief Complaint: Dizziness Stated Complaint: LIGHTHEADED Time Seen by Provider: 10/05/18 09:29 Mode of Arrival: Ambulatory TRAVEL OUTSIDE OF THE [place] IN LAST 30 DAYS: No - HPI Notes: Patient is a 48-year-old female presents emergency department for evaluation of dizziness as well as abdominal pain. She states she is had a right upper quadrant abdominal pain for the last several days. She thought it could be constipation. She states that she has had a hemicolectomy in the past secondary to familial polyposis. She states normally she has diarrhea. She has had decreased bowel movements. She states she drank about a third of a bottle of magnesium citrate, had some Metamucil, and had a small bowel movement. She states it really did not help her pain. She is had a diminished appetite. She is had nausea but no emesis. She states that today she became very dizzy. She felt lightheaded, thought she was "seeing spots." She denies any sensation like that at this time. She denies any melena or hematochezia. No recent head injuries. She states her pain is a cramping type pain, rates it a 4 5 out of 10. Nothing seems to change it. - Related Data Allergies/Adverse Reactions: amoxicillin [Amoxicillin] Allergy (Verified 10/05/18 09:26) latex [Latex] Allergy (Verified 10/05/18 09:26) Past Medical History - General Information source: Patient - Social History Smoking Status: Never Smoker Chew tobacco use (# tins/day): No Frequency of alcohol use: None Drug Abuse: None Family History: Reviewed & Not Pertinent Patient has suicidal ideation: No Patient has homicidal ideation: No - Past Medical History Cardiac Medical History: Denies: Hx Coronary Artery Disease, Hx Heart Attack, Hx Hypertension Pulmonary Medical History: Reports: Hx Asthma Denies: Hx Bronchitis, Hx COPD, Hx Pneumonia Neurological Medical History: Denies: Hx Cerebrovascular Accident, Hx Seizures Renal/ Medical History: Denies: Hx Peritoneal Dialysis GI Medical History: Reports: Other - Familial polyposis Musculoskeletal Medical History: Denies Hx Arthritis Past Surgical History: Reports: Hx Abdominal Surgery - part of colon removed, Hx Appendectomy, Hx Breast Surgery - breast reduction, Hx Cholecystectomy, Hx Tubal Ligation - Immunizations Hx Diphtheria, Pertussis, Tetanus Vaccination: Yes Review of Systems - Review of Systems Constitutional: No symptoms reported EENT: No symptoms reported Cardiovascular: No symptoms reported Respiratory: No symptoms reported Gastrointestinal: See HPI Genitourinary: No symptoms reported Female Genitourinary: No symptoms reported Musculoskeletal: No symptoms reported Skin: No symptoms reported Neurological/Psychological: No symptoms reported Physical Exam - Vital signs Vitals: Temp Pulse Resp BP Pulse Ox 98.6 F 84 16 153/71 H 98 10/05/18 09:29 10/05/18 09:29 10/05/18 09:29 10/05/18 09:29 10/05/18 09:29 - Notes Notes: Vital signs reviewed, please refer to chart. Head is normocephalic, atraumatic. Pupils equal round, reactive to light. Neck is supple without meningismus. Heart is regular rate and rhythm. Lungs are clear to auscultation bilaterally. Abdomen is soft, mild right upper quadrant tenderness, normoactive bowel sounds throughout. Extremities without cyanosis, clubbing. Posterior calves are nontender. Peripheral pulses are equal. Skin is warm and dry. Patient is awake, alert, oriented x3. Cranial nerves II - XII are grossly intact without focal neurological deficits. Strength is plus 5 out of 5 bilateral lower extremities. Sensation is intact. Reflexes symmetrical. Intact [id number], rapid alternating movements, bvkz-[id number]. Course - Re-evaluation Re-evalutation: 10/05/18 12:17 Patient presented to the emergency department for evaluation of dizziness, right upper quadrant abdominal pain. She has absolutely no neurological deficits. Her blood pressure is mildly elevated here, but not markedly so. I do not have a suspicion for endorgan damage as a result of this blood pressure. Her laboratory investigations were entirely unremarkable. The patient was unsure at the beginning as to whether or not she had her gallbladder. She states that they took out "something" when she had a colectomy. It does seem that it was a cholecystectomy she had as well. Right upper quadrant ultrasound, then CT, were found to be unremarkable. Patient is feeling somewhat improved. Certainly could potentially still be mild constipation that is contributing to her symptoms. She is told to try [id number] MiraLAX. Otherwise, [facility]. She is awaiting insurance from her job. She is to return to the ED with worsening or new concerning symptoms of any sort. - Vital Signs Vital signs: Temp Pulse Resp BP Pulse Ox 98.6 F 84 16 153/71 H 98 10/05/18 09:29 10/05/18 09:29 10/05/18 09:29 10/05/18 09:29 10/05/18 09:29 - Laboratory Result Diagrams: 10/05/18 09:44 10/05/18 09:44 - Diagnostic Test Radiology reviewed: Reports reviewed Radiology results interpreted by me: 10/05/18 12:18 Abdomen Ultrasound 10/05/18 09:36 IMPRESSION: Post cholecystectomy. Abdomen/Pelvis CT 10/05/18 10:36 IMPRESSION: No acute findings. - EKG Interpretation by Me Additional EKG results interpreted by me: 10/05/18 12:18 Sinus mechanism with a rate of 81 bpm. Normal axis and intervals, no acute ST changes concerning for ischemia or infarction. No significant change compared to prior study of August 18, 2017. Discharge - Discharge Clinical Impression: Right upper quadrant pain, Dizziness Condition: Stable Disposition: HOME, SELF-CARE Instructions: Abdominal Pain ([facility]), Dizziness ([facility]) Additional Instructions: No clear cause was found for your abdominal pain or your dizziness today. Your abdominal pain may be secondary to constipation. You can try MiraLAX, 1 dose an hour for 4 to 6 hours, as discussed. Follow-up with primary care this week. You have been given a referral [facility]. Return to the ED with worsening or new concerning symptoms of any sort.
[2018-10-05 12:28] VITALS: BP 136/64
--- NOTE | 2018-10-05 19:17 | EKG REPORT ---
SEVERITY:- ABNORMAL ECG - SINUS RHYTHM CONSIDER ANTEROSEPTAL INFARCT : Confirmed by: Jl Nagy 05-Oct-2018 19:15:53
== END 2018-10-05 12:30 | disposition home or self-care (01) ==
LOC: ER 09:25
DX: R10.11 Right upper quadrant pain (principal); R42 Dizziness and giddiness; Z88.0 Allergy status to penicillin; Z91.040 Latex allergy status; Z98.51 Tubal ligation status; Z90.49 Acquired absence of other specified parts of digestive tract
CPT/HCPCS: 93005; 99284; 36415; 83690; 85025; 81025; 80053; 81001; 76705; 74176; 93010; S0119

== ENCOUNTER 2019-04-09 14:04 | Emergency (ER) | payer SELFPAY ==
[2019-04-09 14:42] VITALS: BP 145/74
[2019-04-09] MEDS ORDERED: ASPIRIN 81 MG TABLET, CHEWABLE PO ONE (15:41)
--- NOTE | 2019-04-09 15:42 | ER Document Report ---
ED Medical Screen (RME) - General Chief Complaint: Dizziness Stated Complaint: DIZZINESS Time Seen by Provider: 04/09/19 15:36 Mode of Arrival: Ambulatory Information source: Patient Notes: 48-year-old female presents emergency department with complaints of chest pain radiating down her left arm with dizziness. She reports she woke up this morning feeling funny felt dizzy. She went to work and she started having chest pain that ran down her left arm. She reports cold symptoms for the past couple days with cough, runny nose. Denies fever vomiting nausea. Denies history of cardiac disease. Denies family history of cardiac disease. I have greeted and performed a rapid initial assessment of this patient. A comprehensive ED assessment and evaluation of the patient, analysis of test results and completion of the medical decision making process will be conducted by additional ED providers. TRAVEL OUTSIDE OF THE [place] IN LAST 30 DAYS: No - Related Data Allergies/Adverse Reactions: amoxicillin [Amoxicillin] Allergy (Verified 04/09/19 15:36) latex [Latex] Allergy (Verified 04/09/19 15:36) Past Medical History - Past Medical History Cardiac Medical History: Denies: Hx Coronary Artery Disease, Hx Heart Attack, Hx Hypertension Pulmonary Medical History: Reports: Hx Asthma Denies: Hx Bronchitis, Hx COPD, Hx Pneumonia Neurological Medical History: Denies: Hx Cerebrovascular Accident, Hx Seizures Renal/ Medical History: Denies: Hx Peritoneal Dialysis Musculoskeltal Medical History: Denies Hx Arthritis Past Surgical History: Reports: Hx Abdominal Surgery - part of colon removed, Hx Appendectomy, Hx Breast Surgery - breast reduction, Hx Cholecystectomy, Hx Tubal Ligation - Immunizations Hx Diphtheria, Pertussis, Tetanus Vaccination: Yes Physical Exam - Vital signs Vitals: Temp Pulse Resp BP Pulse Ox 98.5 F 87 20 145/74 H 99 04/09/19 14:39 04/09/19 14:39 04/09/19 14:39 04/09/19 14:39 04/09/19 14:39 Course - Vital Signs Vital signs: Temp Pulse Resp BP Pulse Ox 98.5 F 87 20 145/74 H 99 04/09/19 14:39 04/09/19 14:39 04/09/19 14:39 04/09/19 14:39 04/09/19 14:39
[2019-04-09 16:59] LABS: ABSOLUTE EOSINOPHILS # (AUTO) 0.1 10^3/uL (0.0-0.6); ABSOLUTE LYMPHOCYTES (AUTO) 3.4 10^3/uL (0.5-4.7); ABSOLUTE MONOCYTES (AUTO) 0.5 10^3/uL (0.1-1.4); ABSOLUTE NEUT (AUTO) 3.4 10^3/uL (1.7-8.2); BASOPHILS % (AUTO) 0.4 % (0-2); EOSINOPHILS % (AUTO) 1.5 % (0-6); HEMATOCRIT 41.4 % (36.0-47.0); HEMOGLOBIN 14.1 g/dL (12.0-15.5); LYMPHOCYTES % (AUTO) 45.5 % (13-45); MEAN CORPUSCULAR VOLUME 85 fl (80-97); MONOCYTES % (AUTO) 6.5 % (3-13); PLATELET COUNT 249 10^3/uL (150-450); RED BLOOD COUNT 4.86 10^6/uL (3.72-5.28); RED CELL DISTRIBUTION WIDTH 13.8 % (11.5-14.0); SEGMENTED NEUTROPHILS % (AUTO) 46.1 % (42-78); TOTAL CELLS COUNTED % (AUTO) 100 %; WHITE BLOOD COUNT 7.4 10^3/uL (4.0-10.5)
[2019-04-09 17:11] LABS: APPEARANCE,URINE CLEAR; BILIRUBIN,URINE NEGATIVE (NEGATIVE); COLOR,URINE YELLOW; GLUCOSE, URINE NEGATIVE (NEGATIVE); KETONES,URINE NEGATIVE (NEGATIVE); LEUKOCYTE ESTERASE,URINE NEGATIVE (NEGATIVE); NITRITE,URINE NEGATIVE (NEGATIVE); PROTEIN,URINE NEGATIVE (NEGATIVE)
[2019-04-09 17:20] LABS: ALBUMIN 4.4 g/dL (3.5-5.0); ALKALINE PHOSPHATASE 92 U/L (38-126); ANION GAP 11 (5-19); ASPARTATE AMINO TRANSFERASE 25 U/L (14-36); BILIRUBIN,DIRECT 0.3 mg/dL (0.0-0.4); BILIRUBIN,TOTAL 0.5 mg/dL (0.2-1.3); BLOOD UREA NITROGEN 10 mg/dL (7-20); CALCIUM 9.5 mg/dL (8.4-10.2); CARBON DIOXIDE 29 mmol/L (22-30); CHLORIDE 100 mmol/L (98-107); GLUCOSE 93 mg/dL (75-110); POTASSIUM 4.2 mmol/L (3.6-5.0); TOTAL PROTEIN 8.5 g/dL (6.3-8.2)
--- NOTE | 2019-04-09 17:57 | RADIOLOGY REPORT (SQ) ---
EXAM DESCRIPTION: CHEST 2 VIEWS COMPLETED DATE/TIME: 04/09/2019 5:24 pm REASON FOR STUDY: cp COMPARISON: 01/26/2017 EXAM PARAMETERS: NUMBER OF VIEWS: two views TECHNIQUE: Digital Frontal and Lateral radiographic views of the chest acquired. RADIATION DOSE: NA LIMITATIONS: none FINDINGS: LUNGS AND PLEURA: No opacities, masses or pneumothorax. No pleural effusion. MEDIASTINUM AND HILAR STRUCTURES: No masses or contour abnormalities. HEART AND VASCULAR STRUCTURES: Heart normal size. No evidence for failure. BONES: No acute findings. HARDWARE: None in the chest. OTHER: No other significant finding. IMPRESSION: NO ACUTE RADIOGRAPHIC FINDING IN THE CHEST. TECHNICAL DOCUMENTATION: JOB ID: [id number] [employer]- All Rights Reserved Reading location - IP/workstation name: [email or web address]
--- NOTE | 2019-04-10 09:33 | EKG REPORT ---
SEVERITY:- NORMAL ECG - SINUS RHYTHM : Confirmed by: Jl Nagy 10-Apr-2019 09:32:50
== END 2019-04-09 18:37 | disposition left against medical advice (07) ==
LOC: ER 14:04
DX: Z53.21 Procedure and treatment not carried out due to patient leaving prior to being seen by health care provider (principal); R42 Dizziness and giddiness; R07.9 Chest pain, unspecified; M79.602 Pain in left arm; J45.909 Unspecified asthma, uncomplicated
CPT/HCPCS: 36415; 71046; 80053; 81001; 81025; 84484; 85025; 93005; 93010; 99281

== ENCOUNTER 2019-04-10 11:01 | Emergency (ER) | payer SELFPAY ==
[2019-04-10] MEDS ORDERED: IPRATROPIUM/ALBUTEROL 0.5-2.5 MG/3 ML AMPUL NEB ONE (11:28)
--- NOTE | 2019-04-10 11:34 | ER Document Report ---
HPI - HPI Time Seen by Provider: 04/10/19 11:22 Pain Level: 0 Notes: 48-year-old female presents to the emergency room presents to the emergency room for complaints of congestion, ST, nasal congestion, cough and overall "feeling ill". Patient was seen in the emergency room yesterday for complaints of dizziness and chest pain.patient is denying any chest pain or dizziness today. Yesterday, patient's chest x-ray was negative for any acute pneumonia pneumothorax or any other pulmonary findings, troponin was negative, CBC negative for leukocytosis or anemia, CMP negative for hepatic or renal dysfunction. Patient left before any report findings due to extended length of stay. Patient states that she was very anxious because she recently had a close family member from pneumonia so she wanted to be evaluated. Patient did get a flu shot this year, is not a smoker. Denies any history of asthma, COPD. Denies fevers, chills, chest pain,palpitations, shortness of breath, dyspnea, nausea, vomiting, diarrhea, abdominal pain, hematuria,blurred vision, double vision, loss of vision, speech changes, LH, dizziness, syncope, headaches, wheezing, URI, neck pain, weakness, bowel or bladder dysfunction, saddle anesthesia, numbness or tingling in bilateral upper or lower extremities equally, muscle paralysis, weakness in bilateral upper or lower extremities equally or rash. - REPRODUCTIVE Reproductive: DENIES: : Past Medical History - General Information source: Patient - Social History Smoking Status: Never Smoker Family History: Reviewed & Not Pertinent Patient has suicidal ideation: No Patient has homicidal ideation: No - Past Medical History Cardiac Medical History: Denies: Hx Coronary Artery Disease, Hx Heart Attack, Hx Hypertension Pulmonary Medical History: Reports: Hx Asthma Denies: Hx Bronchitis, Hx COPD, Hx Pneumonia Neurological Medical History: Denies: Hx Cerebrovascular Accident, Hx Seizures Renal/ Medical History: Denies: Hx Peritoneal Dialysis Musculoskeletal Medical History: Denies Hx Arthritis Past Surgical History: Reports: Hx Abdominal Surgery - part of colon removed, Hx Appendectomy, Hx Breast Surgery - breast reduction, Hx Cholecystectomy, Hx Tubal Ligation - Immunizations Hx Diphtheria, Pertussis, Tetanus Vaccination: Yes Vertical Provider Document - CONSTITUTIONAL Agree With Documented VS: Yes Exam Limitations: No Limitations General Appearance: WD/WN Notes: PHYSICAL EXAMINATION:reviewed vital signs by RN GENERAL: Well-appearing, well-nourished and in no acute distress. HEAD: Atraumatic, normocephalic. EYES: Pupils equal round and reactive to light, extraocular movements intact, conjunctiva are normal. ENT: TM intact with bilateral serous effusion, no erythema. Nares boggy bilaterally, oropharynx with erythema without exudates. Moist mucous membranes. NECK: Normal range of motion, supple without lymphadenopathy LUNGS: Breath sounds clear to auscultation bilaterally and equal. No wheezes rales or rhonchi. HEART: Regular rate and rhythm without murmurs ABDOMEN: Soft, nontender, nondistended abdomen. No guarding, no rebound. No masses appreciated. Female : deferred Musculoskeletal: Normal range of motion, no pitting or edema. No cyanosis. NEUROLOGICAL: Cranial nerves grossly intact. Normal speech, normal gait. Normal sensory, motor exams PSYCH: Normal mood, normal affect. SKIN: Warm, Dry, normal turgor, no rashes or lesions noted. - INFECTION CONTROL TRAVEL OUTSIDE OF THE [place] IN LAST 30 DAYS: No Course - Re-evaluation Re-evalutation: 04/10/19 11:35 Presentation of several days of sore throat in an otherwise well-appearing patient. Rapid strep is negative. But influenza was negative. Patient states she felt much better after getting breathing treatment. history and exam are not consistent with a retropharyngeal abscess or peritonsillar abscess. Airway is patent. No difficulty handling oral secretions. Vitals within normal limits. Patient was treated with a course of prednisone as well as tessalon perls, Ventolin inhaler and antihistamine. advised receiving symptomatic care. Suspect likely viral pharyngitis along with exacerbation of seasonal allergies and viral URI. Patient had a negative chest x-ray, negative troponin, normal CBC cmp within last 18 hours. Patient is not complaining of any chest pain or shortness of breath. at this time will discharge with return precautions and follow-up recommendations. Patient is comfortable with this plan of care and agrees with plan of care. Verbal discharge instructions given a the bedside and opportunity for questions given. Medication warnings reviewed. Patient is in agreement with this plan and has verbalized understanding of return precautions and the need for primary care follow-up in the next 24-72 hours. - Vital Signs Vital signs: Temp Pulse Resp BP Pulse Ox 97.7 F 103 H 18 154/81 H 100 04/10/19 11:05 04/10/19 11:05 04/10/19 11:05 04/10/19 11:05 04/10/19 11:05 Discharge - Discharge Clinical Impression: Viral URI with cough Condition: Stable Disposition: HOME, SELF-CARE Instructions: Upper Respiratory Illness ([facility]) Additional Instructions: Your influenza and rapid strep are negative. As discussed your chest x-ray yesterday was negative for pneumonia or pneumothorax, you did not have a white count, you are being treated for a viral upper respiratory infection. Advised to increase oral hydration, wash hands frequently. Work note has been given. Please follow-up with your primary care provider. Return immediately for any new or worsening symptoms. Follow up with primary care provider, call tomorrow to make followup appointment. Prescriptions: Albuterol Sulfate [Proair Respiclick] 90 mcg IH Q4HP PRN #1 aer.pow.ba PRN Reason: Benzonatate [Tessalon Perles 100 mg Capsule] 100 mg PO Q8HP PRN #20 capsule PRN Reason: Prednisone [Deltasone 20 mg Tablet] 3 tab PO DAILY 5 Days #15 tablet Fluticasone Propionate [Flonase Nasal [place] 50 Mcg/[place] 16 gm] 1 spray NASL Q12 #1 bottle Forms: Return to Work Referrals: RAMIREZ LEONARD DO [NO LOCAL MD] - Follow up as needed
[2019-04-10 12:12] LABS: A TYPE INFLUENZA AG NEGATIVE (NEGATIVE); B INFLUENZA AG NEGATIVE (NEGATIVE)
[2019-04-10 13:24] VITALS: BP 141/74
== END 2019-04-10 13:25 | disposition home or self-care (01) ==
LOC: ER 11:01
DX: J06.9 Acute upper respiratory infection, unspecified (principal); R09.81 Nasal congestion; Z90.49 Acquired absence of other specified parts of digestive tract; Z98.51 Tubal ligation status
CPT/HCPCS: 94640; 99283; 87070; 87880; 87077; 87804; J7620

== ENCOUNTER 2019-07-23 17:38 | Emergency (ER) | payer SELFPAY ==
[2019-07-23 17:55] VITALS: BP 127/75
--- NOTE | 2019-07-23 18:09 | ER Document Report ---
ED Medical Screen (RME) - General Chief Complaint: Chest Pain Stated Complaint: CHEST PAIN Time Seen by Provider: 07/23/19 18:02 Mode of Arrival: Ambulatory Information source: Patient Notes: 49-year-old female presented to ED for complaint of chest pain. She states this started on Sunday. She states she gets heartburn easily and she he did have some short ribs on Sunday and ate them and got indigestion. She states she took all of her indigestion medications on Sunday and then yesterday she states she felt better but today the pain all came back again. She states this started on the right side on Sunday but now it is on both sides going down the left arm to the upper arm. She states it is sharp and burning. She states she smokes about 1/2-1/3 a pack a day rarely drinks does not use any illicit drugs. She states she does not have any pain past medical history but sometime recently she had x-ray and they told her that she did not have a gallbladder. Patient is alert oriented respirations regular nonlabored speaking in full sentences. I have greeted and performed a rapid initial assessment of this patient. A comprehensive ED assessment and evaluation of the patient, analysis of test results and completion of medical decision making process will be conducted by an additional ED providers. TRAVEL OUTSIDE OF THE [place] IN LAST 30 DAYS: No - Related Data Allergies/Adverse Reactions: amoxicillin [Amoxicillin] Allergy (Verified 07/23/19 17:55) latex [Latex] Allergy (Verified 07/23/19 17:55) Past Medical History - Social History Chew tobacco use (# tins/day): No Frequency of alcohol use: None Drug Abuse: None - Past Medical History Cardiac Medical History: Denies: Hx Coronary Artery Disease, Hx Heart Attack, Hx Hypertension Pulmonary Medical History: Reports: Hx Asthma Denies: Hx Bronchitis, Hx COPD, Hx Pneumonia Neurological Medical History: Denies: Hx Cerebrovascular Accident, Hx Seizures Renal/ Medical History: Denies: Hx Peritoneal Dialysis Musculoskeltal Medical History: Denies Hx Arthritis Past Surgical History: Reports: Hx Abdominal Surgery - part of colon removed, Hx Appendectomy, Hx Breast Surgery - breast reduction, Hx Cholecystectomy, Hx Tubal Ligation - Immunizations Hx Diphtheria, Pertussis, Tetanus Vaccination: Yes Physical Exam - Vital signs Vitals: Temp 98.5 F 07/23/19 17:46 Course - Vital Signs Vital signs: Temp Pulse Resp BP Pulse Ox 98.5 F 92 16 127/75 H 99 07/23/19 17:54 07/23/19 17:54 07/23/19 17:54 07/23/19 17:54 07/23/19 17:54
[2019-07-23 18:21] LABS: ABSOLUTE EOSINOPHILS # (AUTO) 0.1 10^3/uL (0.0-0.6); ABSOLUTE LYMPHOCYTES (AUTO) 3.3 10^3/uL (0.5-4.7); ABSOLUTE MONOCYTES (AUTO) 0.5 10^3/uL (0.1-1.4); ABSOLUTE NEUT (AUTO) 3.4 10^3/uL (1.7-8.2); BASOPHILS % (AUTO) 0.5 % (0-2); EOSINOPHILS % (AUTO) 1.8 % (0-6); HEMOGLOBIN 13.8 g/dL (12.0-15.5); LYMPHOCYTES % (AUTO) 45.1 % (13-45); MEAN CORPUSCULAR HGB CONC 34.4 g/dL (32.0-36.0); MEAN CORPUSCULAR VOLUME 84 fl (80-97); MONOCYTES % (AUTO) 6.3 % (3-13); PLATELET COUNT 262 10^3/uL (150-450); RED BLOOD COUNT 4.75 10^6/uL (3.72-5.28); RED CELL DISTRIBUTION WIDTH 13.5 % (11.5-14.0); SEGMENTED NEUTROPHILS % (AUTO) 46.3 % (42-78); TOTAL CELLS COUNTED % (AUTO) 100 %; WHITE BLOOD COUNT 7.3 10^3/uL (4.0-10.5)
--- NOTE | 2019-07-23 18:27 | RADIOLOGY REPORT (SQ) ---
EXAM DESCRIPTION: CHEST 2 VIEWS IMAGES COMPLETED DATE/TIME: 07/23/2019 6:14 pm REASON FOR STUDY: chest pain COMPARISON: 04/09/2019 EXAM PARAMETERS: NUMBER OF VIEWS: two views TECHNIQUE: Digital Frontal and Lateral radiographic views of the chest acquired. RADIATION DOSE: NA LIMITATIONS: none FINDINGS: LUNGS AND PLEURA: No opacities, masses or pneumothorax. No pleural effusion. MEDIASTINUM AND HILAR STRUCTURES: No masses or contour abnormalities. HEART AND VASCULAR STRUCTURES: Heart normal size. No evidence for failure. BONES: No acute findings. HARDWARE: None in the chest. OTHER: No other significant finding. IMPRESSION: 1. No significant interval changes since the prior study dated 04/09/2019. No acute find ings. TECHNICAL DOCUMENTATION: JOB ID: [id number] [employer]- All Rights Reserved Reading location - IP/workstation name: [email or web address]
[2019-07-23 18:34] LABS: ALBUMIN 4.2 g/dL (3.5-5.0); ALKALINE PHOSPHATASE 92 U/L (38-126); ANION GAP 6 (5-19); ASPARTATE AMINO TRANSFERASE 29 U/L (14-36); BILIRUBIN,TOTAL 0.4 mg/dL (0.2-1.3); BLOOD UREA NITROGEN 13 mg/dL (7-20); CALCIUM 9.6 mg/dL (8.4-10.2); CARBON DIOXIDE 31 mmol/L (22-30); CHLORIDE 101 mmol/L (98-107); GLUCOSE 111 mg/dL (75-110); POTASSIUM 4.1 mmol/L (3.6-5.0); TOTAL PROTEIN 7.8 g/dL (6.3-8.2)
--- NOTE | 2019-07-23 19:03 | ER Document Report ---
ED General - General Chief Complaint: Chest Pain Stated Complaint: CHEST PAIN Time Seen by Provider: 07/23/19 18:02 Mode of Arrival: Ambulatory Information source: Patient Notes: Yamini ba 49-year-old female presented to ED for complaint of chest pain. She states this started on Sunday. She states she gets heartburn easily and she he did have some short ribs on Sunday and ate them and got indigestion. She states she took all of her indigestion medications on Sunday and then yesterday she states she felt better but today the pain all came back again. She states this started on the right side on Sunday but now it is on both sides going down the left arm to the upper arm. She states it is sharp and burning. She states she smokes about 1/2-1/3 a pack a day rarely drinks does not use any illicit drugs. She states she does not have any pain past medical history but sometime recently she had x-ray and they told her that she did not have a gallbladder. Patient is alert oriented respirations regular nonlabored speaking in full sentences. My notes 49-year-old black female arrives by POV driving herself from [facility] on her birthday. She reports 4 days ago on Sunday she was eating some ribs and was doing well but began to have right sided chest pain after pouring the rib grease onto some rice for dinner.. She then began to have left-sided chest pain with referral to her left shoulder and into her left upper back. This is been on and off since Sunday. Today is Sunday and it got worse on her birthday and therefore she drove herself to the hospital. Her initial labs are within normal limits chest x-ray within normal limits. Patient reports 10 years ago she had colon resection with polyps and she had her gallbladder out at that time. She had a CT of abdomen done last September which confirms removal of her gallbladder. TRAVEL OUTSIDE OF THE [place] IN LAST 30 DAYS: No - HPI Onset: Other - x 4 days Onset/Duration: Persistent, Worse Quality of pain: Achy Severity: Mild Pain Level: 2 - 2/5 pain Associated symptoms: Chest pain Exacerbated by: Denies Relieved by: Denies Similar symptoms previously: No Recently seen / treated by doctor: No - Related Data Allergies/Adverse Reactions: amoxicillin [Amoxicillin] Allergy (Verified 07/23/19 17:55) latex [Latex] Allergy (Verified 07/23/19 17:55) Past Medical History - General Information source: Patient - Social History Smoking Status: Current Every Day Smoker Cigarette use (# per day): Yes - Patient smokes 1 pack of cigarettes every 3 days. Chew tobacco use (# tins/day): No Smoking Education Provided: Yes - Patient reports she is been a smoker since teenage years Frequency of alcohol use: None Drug Abuse: None Family History: Reviewed & Not Pertinent Patient has suicidal ideation: No Patient has homicidal ideation: No - Past Medical History Cardiac Medical History: Denies: Hx Coronary Artery Disease, Hx Heart Attack, Hx Hypertension Pulmonary Medical History: Reports: Hx Asthma Denies: Hx Bronchitis, Hx COPD, Hx Pneumonia Neurological Medical History: Denies: Hx Cerebrovascular Accident, Hx Seizures Renal/ Medical History: Denies: Hx Peritoneal Dialysis Musculoskeletal Medical History: Denies Hx Arthritis Past Surgical History: Reports: Hx Abdominal Surgery - part of colon removed, Hx Appendectomy, Hx Breast Surgery - breast reduction, Hx Cholecystectomy, Hx Tubal Ligation - Immunizations Hx Diphtheria, Pertussis, Tetanus Vaccination: Yes Review of Systems - Review of Systems Constitutional: No symptoms reported EENT: No symptoms reported Cardiovascular: See HPI, Chest pain Respiratory: No symptoms reported Gastrointestinal: No symptoms reported Genitourinary: No symptoms reported Female Genitourinary: No symptoms reported Musculoskeletal: No symptoms reported Skin: No symptoms reported Hematologic/Lymphatic: No symptoms reported Neurological/Psychological: No symptoms reported Physical Exam - Vital signs Vitals: Temp 98.5 F 07/23/19 17:46 Interpretation: Normal - General General appearance: Alert, Anxious - HEENT Head: Normocephalic Eyes: Normal Conjunctiva: Normal Cornea: Normal Pupils: PERRL Mouth/Lips: Normal Mucous membranes: Normal Pharynx: Normal Neck: Normal - Respiratory Respiratory status: No respiratory distress Chest status: Nontender Breath sounds: Normal Chest palpation: Normal - Cardiovascular Rhythm: Regular Heart sounds: Normal auscultation Murmur: No Friction rub: No Ellie's crunch: No - Abdominal Inspection: Normal Distension: No distension Bowel sounds: Normal Tenderness: Nontender Organomegaly: No organomegaly - Genitourinary External exam: Other - deferred - Back Back: Normal - Extremities General upper extremity: Normal inspection General lower extremity: Normal strength - Neurological Neuro grossly intact: Yes Cognition: Normal Orientation: AAOx4 Claudia Coma Scale Eye Opening: Spontaneous [place] Coma Scale Verbal: Oriented [place] Coma Scale Motor: Obeys Commands [place] Coma Scale Total: 15 Speech: Normal Motor strength normal: LUE, RUE, LLE, RLE Sensory: Normal - Psychological Associated symptoms: Anxious - Skin Skin Temperature: Warm Skin Moisture: Dry Course - Vital Signs Vital signs: Temp Pulse Resp BP Pulse Ox 98.5 F 92 16 127/75 H 100 07/23/19 17:54 07/23/19 17:54 07/23/19 17:54 07/23/19 17:54 07/23/19 20:05 - Laboratory Result Diagrams: 07/23/19 18:05 07/23/19 18:05 Laboratory results interpreted by me: 07/23/19 07/23/19 18:05 18:05 Lymph % (Auto) 45.1 H Carbon Dioxide 31 H Glucose 111 H Critical Care Note - Critical Care Note Total time excluding time spent on procedures (mins): 90 Comments: I discussed this case with Dr. Kraft referral rn and he advises this patient to be followed up in office if the second troponin is negative. Also he gave me his number at [phone].. I discussed the findings with the patient and she advises she will take Prilosec and baby aspirin 81 mg daily before seeing 1 of the referral rn. But 2217 patient was ready to go home despite not having the second troponin back. We advised her of the heart protein pending results and potential for CO. She is aware of the pros and cons of staying and going. Discharge - Discharge Clinical Impression: Angina at rest Condition: Good Disposition: HOME, SELF-CARE Additional Instructions: Return to ER if symptoms persist take medicines as directed Follow-up with Dr. Kraft referral rn call tomorrow for appointment; if you live in [place] you may also use Dr. Kwong who has a clinic there Forms: Return to Work
[2019-07-23 22:44] LABS: APPEARANCE,URINE CLEAR; BILIRUBIN,URINE NEGATIVE (NEGATIVE); COLOR,URINE YELLOW; GLUCOSE, URINE NEGATIVE (NEGATIVE); KETONES,URINE NEGATIVE (NEGATIVE); PROTEIN,URINE NEGATIVE (NEGATIVE); URINE SPECIFIC GRAVITY 1.011
--- NOTE | 2019-07-24 10:03 | EKG REPORT ---
SEVERITY:- NORMAL ECG - SINUS RHYTHM : Confirmed by: Jl Nagy 24-Jul-2019 10:02:34
== END 2019-07-23 22:00 | disposition home or self-care (01) ==
LOC: ER 17:38
DX: I20.9 Angina pectoris, unspecified (principal); R07.9 Chest pain, unspecified; M79.602 Pain in left arm; F17.210 Nicotine dependence, cigarettes, uncomplicated; J45.909 Unspecified asthma, uncomplicated
CPT/HCPCS: 36415; 71046; 80053; 81001; 83690; 84484; 84703; 85025; 93005; 93010; 99291; 99292